=== PATIENT | male | born 1935 | race Caucasian/White ===

== ENCOUNTER 2017-08-01 08:53 | Inpatient (IN) | payer OTHER ==
[~2017-08-01] VITALS: Ht 175.3 cm; Wt 76.5 kg
[2017-08-01] VITALS (14 sets, daily range): BP systolic 107–130; BP diastolic 50–75
[2017-08-01] MEDS ORDERED: HEPARIN SODIUM 1000UNIT/ML 10ML VIAL ONE (08:56)
[2017-08-01] MEDS ORDERED: SODIUM BICARB 50MEQ 50ML VIAL ONE (08:56)
[2017-08-01] MEDS ORDERED: IOPAMIDOL-370 100 ML VIAL IV ONE (08:57)
[2017-08-01] MEDS ORDERED: ISOVUE-370 50ML VIAL IV ONE ×2 (08:57→09:34)
[2017-08-01] MEDS ORDERED: NITROGLYCERIN 5 MG/ML 10 ML VIAL IV ONE (08:57)
[2017-08-01] MEDS ORDERED: LIDOCAINE HCL 2% 20ML ONE (08:57)
[2017-08-01 09:08] LABS: HEMATOCRIT 34.6 % (42-54); MEAN CORPUSCULAR HGB CONC 33.9 g/dL (32.0-36.0); MEAN CORPUSCULAR VOLUME 82.6 fL (79-99); NUCLEATED RED BLOOD CELLS 0.1 % (0.0-0.19); PLATELET COUNT (AUTO) 188 K/uL (130-400); RED BLOOD CELL COUNT(AUTO) 4.18 MIL/uL (4.50-6.20); RED CELL DISTRIBUTION WIDTH 14.8 % (11.0-15.5)
[2017-08-01] MEDS ORDERED: ONDANSETRON HCL 4 MG/2 ML VIAL IV PRN (09:15)
[2017-08-01] MEDS ORDERED: MAG HYDROX/AL HYDROX/SIMETH ES 30 ML SUSP UDCUP PO PRN (09:15)
[2017-08-01] MEDS ORDERED: GUAIFENESIN-DM 200/20 MG 10 ML PO PRN (09:15)
[2017-08-01] MEDS ORDERED: NITROGLYCERIN 0.4 MG SL TAB SL PRN (09:15)
[2017-08-01] MEDS ORDERED: ACETAMINOPHEN 325 MG TAB PO PRN ×2 (09:15)
[2017-08-01] MEDS ORDERED: HYDRALAZINE HCL 20 MG/ML VIAL IV PRN (09:15)
[2017-08-01] MEDS ORDERED: LACTULOSE 20 GM/30 ML UDCUP PO PRN (09:15)
[2017-08-01] MEDS ORDERED: ONDANSETRON HCL 4 MG/2 ML VIAL ONE (09:17)
[2017-08-01 09:21] LABS: POTASSIUM 4.2 mmol/L (3.5-5.1)
[2017-08-01 09:24] LABS: ALBUMIN 2.5 g/dL (3.5-5.0); BILIRUBIN,TOTAL 0.3 mg/dL (0.2-1.0); TOTAL PROTEIN, SERUM 7.2 g/dL (6.0-8.3)
[2017-08-01 09:28] LABS: INR 1.07 (0.85-1.15); PARTIAL THROMBOPLASTIN TIME 30.2 SEC (26.3-35.5); PROTHROMBIN TIME 11.2 SEC (9.6-11.6)
[2017-08-01] MEDS ORDERED: CLOPIDOGREL BISULFATE 300 MG TAB ONE (09:45)
[2017-08-01] MEDS ORDERED: ASPIRIN 81MG TAB.CHEW ONE (09:45)
[2017-08-01 09:47] LABS: BAND NEUTROPHILS % (MANUAL) 1 % (0-2); BASOPHILS % (MANUAL) 1 % (0-2); EOSINOPHILS % (MANUAL) 2 % (1-6); LYMPHOCYTES % (MANUAL) 10 % (22-44); MAN.DIFF COMMENT-IMPRESSION MANUAL DIFFERENTIAL; MONOCYTES % (MANUAL) 5 % (2-9); PLATELET MORPHOLOGY COMMENT ADEQUATE; SEGMENTED NEUTROPHILS % 81 % (40-70)
[2017-08-01] MEDS ORDERED: SODIUM CHLORIDE 0.9% 1000ML 1,000 ML IV SCH (09:51)
[2017-08-01] MEDS ORDERED: ACETAMINOPHEN-CODEINE 300/30MG TAB PO PRN ×2 (10:00)
[2017-08-01] MEDS ORDERED: ONDANSETRON HCL 4 MG/2 ML VIAL IVP PRN (10:00)
[2017-08-01] MEDS ORDERED: DEXTROSE 50%-WATER 50 ML DISP.SYRIN IV PRN (10:00)
[2017-08-01 11:17] LABS: CREATINE KINASE MB 21.8 ng/mL (0.5-3.6)
[2017-08-01] MEDS: INSULIN HUMULIN R 100 UNIT/ML 3ML SQ SCH ×3 (11:30→21:00)
[2017-08-01] MEDS ORDERED: METF10004 PO (11:32)
[2017-08-01] MEDS ORDERED: METO50TA9 PO (12:17)
[2017-08-01] MEDS ORDERED: CLOP75TA32 PO (12:17)
[2017-08-01] MEDS ORDERED: ATOR40TA71 PO (12:17)
[2017-08-01] MEDS ORDERED: ASPI-555 PO (12:17)
[2017-08-01] MEDS: ATORVASTATIN CALCIUM 20 MG TABLET PO SCH (20:41)
[2017-08-01] MEDS: METOPROLOL TARTRATE 25 MG TAB PO SCH (21:00)
[2017-08-02] VITALS (8 sets, daily range): BP systolic 101–137; BP diastolic 52–76
[2017-08-02 03:56] LABS: HEMATOCRIT 33.2 % (42-54); MEAN CORPUSCULAR HEMOGLOBIN 28.9 pg (27.0-33.0); MEAN CORPUSCULAR HGB CONC 35.3 g/dL (32.0-36.0); MEAN CORPUSCULAR VOLUME 81.8 fL (79-99); NUCLEATED RED BLOOD CELLS 0.2 % (0.0-0.19); PLATELET COUNT (AUTO) 205 K/uL (130-400); RED BLOOD CELL COUNT(AUTO) 4.06 MIL/uL (4.50-6.20); RED CELL DISTRIBUTION WIDTH 15.1 % (11.0-15.5); WHITE BLOOD COUNT (AUTO) 2.9 K/uL (4.8-10.8)
[2017-08-02 04:10] LABS: HEMOGLOBIN A1C 6.4 % (4.0-6.0)
[2017-08-02 04:12] LABS: B-TYPE NATRIURETIC PEPTIDE 679 pg/mL (0-100)
[2017-08-02 04:22] LABS: ALBUMIN 2.3 g/dL (3.5-5.0); BILIRUBIN,TOTAL 0.6 mg/dL (0.2-1.0); CREATINE KINASE MB 90.5 ng/mL (0.5-3.6); CREATININE 1.1 mg/dL (0.5-1.5); POTASSIUM 3.9 mmol/L (3.5-5.1); TOTAL PROTEIN, SERUM 6.8 g/dL (6.0-8.3)
[2017-08-02 05:04] LABS: TROPONIN I 69.76 ng/mL (0.00-0.06)
[2017-08-02] MEDS: INSULIN HUMULIN R 100 UNIT/ML 3ML SQ SCH ×3 (06:01→21:00)
[2017-08-02] MEDS: PANTOPRAZOLE SODIUM 40 MG TABLET.DR PO SCH (08:51)
[2017-08-02] MEDS: METOPROLOL TARTRATE 25 MG TAB PO SCH ×2 (08:51→21:12)
[2017-08-02] MEDS: CLOPIDOGREL BISULFATE 75 MG TAB PO SCH (08:51)
[2017-08-02] MEDS: ASPIRIN 81MG TAB.CHEW PO SCH (08:51)
[2017-08-02] MEDS: ATORVASTATIN CALCIUM 20 MG TABLET PO SCH (21:12)
[2017-08-03 03:52] VITALS: BP 114/61
[2017-08-03] MEDS ORDERED: POTASSIUM CHLORIDE 20MEQ/100ML 100 ML IV PRN (04:30)
[2017-08-03] MEDS ORDERED: LIDOCAINE HCL-MPF 1% 2ML VIAL IVP PRN (04:30)
[2017-08-03] MEDS ORDERED: POTASSIUM CHLORIDE 10% ELIXIR 20 MEQ/15 ML UDCUP PO PRN (04:30)
[2017-08-03 05:02] LABS: MAGNESIUM 1.8 mg/dL (1.80-2.40); POTASSIUM 3.7 mmol/L (3.5-5.1)
[2017-08-03] MEDS ORDERED: MAGNESIUM 2GM PREMIX 50ML 50 ML IV ONE ×2 (05:27→05:30)
[2017-08-03] MEDS: POTASSIUM CHLORIDE 20 MEQ ERTAB PO PRN ×2 (05:28→10:02)
[2017-08-03] MEDS: INSULIN HUMULIN R 100 UNIT/ML 3ML SQ SCH ×4 (05:44→20:53)
[2017-08-03 07:22] LABS: CREATININE 1.1 mg/dL (0.5-1.5); POTASSIUM 3.7 mmol/L (3.5-5.1)
[2017-08-03 07:48] VITALS: BP 124/71
[2017-08-03] MEDS: METOPROLOL TARTRATE 25 MG TAB PO SCH ×2 (09:58→20:52)
[2017-08-03] MEDS: CLOPIDOGREL BISULFATE 75 MG TAB PO SCH (09:59)
[2017-08-03] MEDS: ASPIRIN 81MG TAB.CHEW PO SCH (09:59)
[2017-08-03] MEDS: PANTOPRAZOLE SODIUM 40 MG TABLET.DR PO SCH (09:59)
[2017-08-03 11:06] VITALS: BP 103/38
[2017-08-03 11:29] VITALS: BP 100/61
[2017-08-03 16:00] VITALS: BP 113/68
[2017-08-03 19:31] VITALS: BP 123/64
[2017-08-03] MEDS: ATORVASTATIN CALCIUM 20 MG TABLET PO SCH (20:52)
[2017-08-04 00:24] VITALS: BP 117/60
[2017-08-04 04:03] VITALS: BP 111/67
[2017-08-04 05:22] LABS: CREATININE 1.3 mg/dL (0.5-1.5); PHOSPHORUS 2.9 mg/dL (2.5-4.9); POTASSIUM 4.2 mmol/L (3.5-5.1)
[2017-08-04] MEDS: INSULIN HUMULIN R 100 UNIT/ML 3ML SQ SCH (06:09)
[2017-08-04 07:38] VITALS: BP 120/61
[2017-08-04] MEDS: CLOPIDOGREL BISULFATE 75 MG TAB PO SCH (08:10)
[2017-08-04] MEDS: PANTOPRAZOLE SODIUM 40 MG TABLET.DR PO SCH (08:10)
[2017-08-04] MEDS: METOPROLOL TARTRATE 25 MG TAB PO SCH (08:10)
[2017-08-04] MEDS: ASPIRIN 81MG TAB.CHEW PO SCH (08:10)
== END 2017-08-04 11:12 | disposition home or self-care (01) | DRG 246 ==
LOC: EDH 08:53 → EDHIP 09:07 → 2CH 10:40 → 2BH 13:27 → 2DH 08-02 15:21
PROVIDERS: ADMIT Internal Medicine; ATTEND Internal Medicine
PROC: 4A023N7 Measurement of Cardiac Sampling and Pressure, Left Heart, Percutaneous Approach (ICD-10-PCS; principal; 2017-08-01)
PROC: 027034Z Dilation of Coronary Artery, One Artery with Drug-eluting Intraluminal Device, Percutaneous Approach (ICD-10-PCS; 2017-08-01)
PROC: B2111ZZ Fluoroscopy of Multiple Coronary Arteries using Low Osmolar Contrast (ICD-10-PCS; 2017-08-01)
PROC: B2161ZZ Fluoroscopy of Right and Left Heart using Low Osmolar Contrast (ICD-10-PCS; 2017-08-01)
DX: I21.09 ST elevation (STEMI) myocardial infarction involving other coronary artery of anterior wall (principal); E43 Unspecified severe protein-calorie malnutrition; I47.2 Ventricular tachycardia; E11.9 Type 2 diabetes mellitus without complications; I48.91 Unspecified atrial fibrillation; I44.7 Left bundle-branch block, unspecified; I10 Essential (primary) hypertension; E78.5 Hyperlipidemia, unspecified; I25.10 Atherosclerotic heart disease of native coronary artery without angina pectoris; Z95.820 Peripheral vascular angioplasty status with implants and grafts; Z79.84 Long term (current) use of oral hypoglycemic drugs; Z80.9 Family history of malignant neoplasm, unspecified
CPT/HCPCS: 36415; 71045; 80048; 80053; 80061; 82550; 82553; 82948; 83036; 83735; 83874; 83880; 84100; 84132; 84484; 85025; 85027; 85347; 85610; 85730; 93005; 93306; 93458; 93925; 99291; C1725; C1769; C1887; C1894; C9600; J1644; J1815; J2405; J3475; J3490; Q9967

== ENCOUNTER → 2017-08-22 | Outpatient (CLI) | payer OTHER ==
[~2017-08-22] MED LIST: ASPI-555 PO; ATOR40TA71 PO; CLOP75TA32 PO; METF10004 PO; METO50TA9 PO
== END | disposition home or self-care (01) ==
LOC: RAH 10:00
PROVIDERS: ATTEND Internal Medicine Cardiovascular Disease
DX: S09.90XA Unspecified injury of head, initial encounter (principal); X58.XXXA Exposure to other specified factors, initial encounter; Y93.89 Activity, other specified; Y92.89 Other specified places as the place of occurrence of the external cause; Y99.8 Other external cause status
CPT/HCPCS: 70450